=== PATIENT | female | born 1960 | race Caucasian/White ===

== ENCOUNTER 2021-12-21 08:27 | Observation (INO) | payer BC ==
[2021-12-21] MEDS ORDERED: ACETAMINOPHEN 500 MG TABLET (FP) PO ONE (09:15)
[2021-12-21] MEDS ORDERED: ACETAMINOPHEN 325 MG TABLET (FP) ONE (09:24)
[2021-12-21] MEDS ORDERED: morphine CARPU-JECT 2 MG/1 ML DISP.SYRIN IM ONE (09:39)
[2021-12-21] MEDS ORDERED: morphine SULFATE 4 MG/ML VIAL ONE (09:49)
[2021-12-21] MEDS ORDERED: KETAMINE HCL 200 MG/20 ML VIAL IVPUSH ONE ×3 (10:21→12:44)
[2021-12-21] MEDS ORDERED: PROPOFOL 200 MG/20 ML VIAL IVPUSH ONE (10:21)
[2021-12-21] MEDS ORDERED: KETAMINE HCL 200 MG/20 ML VIAL ONE (10:25)
[2021-12-21] MEDS ORDERED: PROPOFOL 1,000,000 MCG/100 ML VIAL ONE (10:26)
[2021-12-21] MEDS ORDERED: SODIUM CHLORIDE 0.9% 500 ML INFUS.BAG IV ONE (14:08)
[2021-12-21 15:32] LABS: BASO % 0.4 % (0-2.0); EOS % 0.3 % (0-4.5); HEMATOCRIT 41.3 % (32.4-45.2); LYMPH % 27.7 % (8-40); MCH 35.8 pg (25.7-33.7); MEAN CELL VOLUME 105.3 fl (80-96); MEAN PLT VOLUME 7.5 fl (7.5-11.1); MONO % 10.2 % (3.8-10.2); NEUT % 61.4 % (42.8-82.8); PLATELET COUNT 126 10^3/uL (134-434); RBC 3.92 M/mm3 (3.60-5.2); RDW 15.2 % (11.6-15.6)
[2021-12-21 16:00] LABS: ALBUMIN 3.4 g/dl (3.4-5.0); BLOOD UREA NITROGEN 11.2 mg/dL (7-18); CALCIUM 8.9 mg/dL (8.5-10.1)
[2021-12-21 16:04] LABS: BILIRUBIN,TOTAL 1.1 mg/dL (0.2-1); TOT PROT 7.9 g/dl (6.4-8.2)
[2021-12-21 16:35] LABS: MACROCYTOSIS 2+; PLATELET ESTIMATE DECREASED
[2021-12-21] MEDS: INSULIN SLIDING SCALE (NOVOLOG) 1 VIAL SQ SCH ×2 (16:40→22:50)
[2021-12-21] MEDS ORDERED: ACETAMINOPHEN 325 MG TABLET (FP) PO PRN (18:55)
[2021-12-21] MEDS ORDERED: ALPRAZolam 1 MG TABLET PO PRN (19:35)
[2021-12-22 02:31] VITALS: BMI 40.4
[2021-12-22] MEDS: INSULIN SLIDING SCALE (NOVOLOG) 1 VIAL SQ SCH ×4 (06:58→21:08)
[2021-12-22] MEDS ORDERED: LEVOTHYROXINE 75 MCG, LEVOTHYROXINE 100 MCG PO SCH (07:00)
[2021-12-22] MEDS: ENOXAPARIN NA (PORCINE) 40 MG/0.4 ML DISP.SYRIN SQ SCH (09:47)
[2021-12-22] MEDS: metoPROLOL SUCCINATE 25 MG TAB.SR.24H (FP) PO SCH (09:47)
[2021-12-22 10:14] LABS: CALCIUM 8.6 mg/dL (8.5-10.1)
[2021-12-22 10:15] LABS: BLOOD UREA NITROGEN 13.3 mg/dL (7-18)
[2021-12-22 10:18] LABS: CREATININE 0.8 mg/dL (0.55-1.3)
[2021-12-22 10:19] LABS: TOT PROT 7.1 g/dl (6.4-8.2)
[2021-12-22 10:20] LABS: BILIRUBIN,TOTAL 1.4 mg/dL (0.2-1)
[2021-12-22] MEDS: oxyCODONE HCL 5 MG TABLET PO PRN ×2 (13:01→21:04)
[2021-12-22] MEDS ORDERED: ALBUTEROL SO4 0.083% IH SOL 2.5 MG/3 ML VIAL.NEB. NEB PRN (14:17)
[2021-12-22] MEDS ORDERED: PATIENT'S OWN MEDICATION (NON-FORMULARY) (Levothyroxine Sodium [Levothyroxine] 175 MCG Cap PO SCH (14:30)
[2021-12-22] MEDS ORDERED: ALBUTEROL SO4 HFA INHALER IH PRN (14:42)
[2021-12-22] MEDS ORDERED: LEVOTHYROXINE NA 75 MCG TABLET (FP) ONE (16:49)
[2021-12-22] MEDS ORDERED: LEVOTHYROXINE NA 100 MCG TABLET (FP) ONE (16:49)
[2021-12-22] MEDS: LEVOTHYROXINE 75 MCG, LEVOTHYROXINE 100 MCG PO SCH (16:56)
[2021-12-22] MEDS: ALPRAZolam 1 MG TABLET PO PRN ×2 (16:58→22:48)
[2021-12-23] MEDS: oxyCODONE HCL 5 MG TABLET PO PRN (02:59)
[2021-12-23] MEDS ORDERED: LEVOTHYROXINE NA 100 MCG TABLET (FP) ONE (06:03)
[2021-12-23] MEDS ORDERED: LEVOTHYROXINE NA 75 MCG TABLET (FP) ONE (06:03)
[2021-12-23] MEDS: LEVOTHYROXINE 75 MCG, LEVOTHYROXINE 100 MCG PO SCH (06:06)
[2021-12-23] MEDS: ALPRAZolam 1 MG TABLET PO PRN ×2 (06:06→15:08)
[2021-12-23] MEDS: INSULIN SLIDING SCALE (NOVOLOG) 1 VIAL SQ SCH ×2 (06:07→13:09)
[2021-12-23] MEDS ORDERED: INSULIN (NOVOLOG) ASPART 100 UNITS/ML 10ML VIAL ONE ×2 (06:39→16:59)
[2021-12-23 07:47] LABS: HEMATOCRIT 37.8 % (32.4-45.2); HEMOGLOBIN 12.7 GM/dL (10.7-15.3); MCH 35.3 pg (25.7-33.7); MCHC 33.6 g/dl (32.0-36.0); MEAN CELL VOLUME 105.1 fl (80-96); MEAN PLT VOLUME 7.6 fl (7.5-11.1); PLATELET COUNT 129 10^3/uL (134-434); RBC 3.59 M/mm3 (3.60-5.2); RDW 15.1 % (11.6-15.6); WHITE BLOOD COUNT 7.2 K/mm3 (4.0-10.0)
[2021-12-23 08:06] LABS: CALCIUM 8.8 mg/dL (8.5-10.1)
[2021-12-23 08:07] LABS: BLOOD UREA NITROGEN 13.2 mg/dL (7-18); MAGNESIUM 2.1 mg/dL (1.8-2.4)
[2021-12-23 08:10] LABS: CREATININE 0.7 mg/dL (0.55-1.3)
[2021-12-23] MEDS ORDERED: POTASSIUM CHLORIDE TABS 10 MEQ TABLET.ER (FP) PO ONE (09:15)
[2021-12-23] MEDS ORDERED: NICOTINE 14 MG/24 HOURS TOPICAL PATCH TD SCH (10:00)
[2021-12-23] MEDS: metoPROLOL SUCCINATE 25 MG TAB.SR.24H (FP) PO SCH (10:41)
[2021-12-23] MEDS: ENOXAPARIN NA (PORCINE) 40 MG/0.4 ML DISP.SYRIN SQ SCH (10:41)
[2021-12-23 16:37] VITALS: BP 130/60; PULSE 72; TEMP 98.8
== END 2021-12-23 18:21 | disposition home or self-care (01) ==
LOC: JER 08:27 → JERBED 15:28 → J8W 21:41
PROVIDERS: ADMIT Internal Medicine
PROC: 0QSHXZZ Reposition Left Tibia, External Approach (ICD-10-PCS; principal; 2021-12-21)
PROC: 3E023GC Introduction of Other Therapeutic Substance into Muscle, Percutaneous Approach (ICD-10-PCS; 2021-12-21)
PROC: 3E013VG Introduction of Insulin into Subcutaneous Tissue, Percutaneous Approach (ICD-10-PCS; 2021-12-21)
PROC: 3E033GC Introduction of Other Therapeutic Substance into Peripheral Vein, Percutaneous Approach (ICD-10-PCS; 2021-12-21)
PROC: 3E023NZ Introduction of Analgesics, Hypnotics, Sedatives into Muscle, Percutaneous Approach (ICD-10-PCS; 2021-12-21)
PROC: 3E033NZ Introduction of Analgesics, Hypnotics, Sedatives into Peripheral Vein, Percutaneous Approach (ICD-10-PCS; 2021-12-21)
PROC: 3E0337Z Introduction of Electrolytic and Water Balance Substance into Peripheral Vein, Percutaneous Approach (ICD-10-PCS; 2021-12-21)
DX: S82.852A Displaced trimalleolar fracture of left lower leg, initial encounter for closed fracture (principal); W22.01XA Walked into wall, initial encounter; Y93.89 Activity, other specified; Y92.000 Kitchen of unspecified non-institutional (private) residence as the place of occurrence of the external cause; E11.9 Type 2 diabetes mellitus without complications; I10 Essential (primary) hypertension; E78.5 Hyperlipidemia, unspecified; F17.210 Nicotine dependence, cigarettes, uncomplicated
CPT/HCPCS: 36415; 73562-TC-LT-FY; 73590-TC-LT-FY; 73610-TC-LT-FY; 73630-TC-LT; 80048; 80053; 82607; 82962; 83036; 83735; 85025; 85027; 86850; 86900; 86901; 93005; 93010; 97010-GP; 97116-GP; 97161-GP; 99285-25; C9803; G0378; U0003; U0005

== ENCOUNTER 2021-12-31 07:34 | Inpatient (IN) | payer BC ==
[2021-12-31 09:40] LABS: BASO % 1.2 % (0-2.0); LYMPH % 32.8 % (8-40); MCH 36.2 pg (25.7-33.7); MCHC 34.3 g/dl (32.0-36.0); MEAN CELL VOLUME 105.5 fl (80-96); MEAN PLT VOLUME 7.3 fl (7.5-11.1); MONO % 12.3 % (3.8-10.2); NEUT % 52.7 % (42.8-82.8); PLATELET COUNT 168 10^3/uL (134-434); RBC 3.32 M/mm3 (3.60-5.2); RDW 14.9 % (11.6-15.6)
[2021-12-31 09:55] LABS: ACTIVATED PTT 37.3 SECONDS (25.2-36.5); INR 1.28 (0.83-1.09); PROTHROMBIN TIME (PATIENT) 14.8 SEC (9.7-13.0)
[2021-12-31 10:07] LABS: CHLORIDE 105 mmol/L (98-107); SODIUM 138 mmol/L (136-145)
[2021-12-31 10:09] LABS: ANION GAP 7 MMOL/L (8-16); CALCIUM 8.9 mg/dL (8.5-10.1); CO2 25 mmol/L (21-32)
[2021-12-31 10:10] LABS: ALBUMIN 2.8 g/dl (3.4-5.0); GLUCOSE,RANDOM 123 mg/dL (74-106)
[2021-12-31 10:12] LABS: CREATININE 0.9 mg/dL (0.55-1.3)
[2021-12-31 10:13] LABS: SGOT/AST 61 U/L (15-37); SGPT/ALT 29 U/L (13-61)
[2021-12-31 10:15] LABS: ALK PHOS 162 U/L (45-117)
[2021-12-31] MEDS ORDERED: ZOLPIDEM TARTRATE 5 MG TABLET PO PRN (11:01)
[2021-12-31] MEDS ORDERED: ALPRAZolam 1 MG TABLET PO PRN (11:03)
[2021-12-31 12:20] LABS: URINE APPEARANCE CLEAR; URINE BILIRUBIN NEGATIVE (NEGATIVE); URINE COLOR YELLOW; URINE GLUCOSE (UA) NEGATIVE (NEGATIVE); URINE KETONE NEGATIVE (NEGATIVE); URINE LEUK ESTERASE NEGATIVE (NEGATIVE); URINE NITRITE NEGATIVE (NEGATIVE); URINE PROTEIN NEGATIVE (NEGATIVE)
[2021-12-31 12:48] LABS: ANISOCYTOSIS 1+; MACROCYTOSIS 1+; PLATELET ESTIMATE NORMAL
[2021-12-31] MEDS ORDERED: DOCUSATE SODIUM 100 MG CAPSULE (FP) PO ONE ×2 (14:20→14:21)
[2021-12-31] MEDS: INSULIN SLIDING SCALE (NOVOLOG) 1 VIAL SQ SCH (19:10)
[2021-12-31] MEDS ORDERED: SODIUM CHLORIDE 500 ML IV STA (20:10)
[2021-12-31] MEDS ORDERED: MONTELUKAST NA 10 MG TABLET PO SCH (22:00)
[2021-12-31] MEDS ORDERED: ROSUVASTATIN CA 20 MG TABLET PO SCH (22:00)
[2021-12-31] MEDS ORDERED: traZODone HCL 50 MG TABLET (FP) PO SCH (22:00)
[2021-12-31] MEDS: ACETAMINOPHEN 325 MG TABLET (FP) PO PRN (23:45)
[2022-01-01 02:36] VITALS: BMI 43.0
[2022-01-01] MEDS ORDERED: LEVOTHYROXINE NA 100 MCG TABLET (FP) ONE (05:45)
[2022-01-01] MEDS ORDERED: LEVOTHYROXINE NA 75 MCG TABLET (FP) ONE (05:45)
[2022-01-01] MEDS: INSULIN SLIDING SCALE (NOVOLOG) 1 VIAL SQ SCH ×3 (06:22→17:07)
[2022-01-01] MEDS ORDERED: LEVOTHYROXINE 100 MCG, LEVOTHYROXINE 75 MCG PO SCH (07:00)
[2022-01-01] MEDS ORDERED: LEVOTHYROXINE NA 150 MCG TABLET PO SCH (07:00)
[2022-01-01] MEDS: ACETAMINOPHEN 325 MG TABLET (FP) PO PRN ×2 (08:32→20:36)
[2022-01-01] MEDS ORDERED: ASPIRIN 81 MG CHEWABLE TABLETS PO SCH (10:00)
[2022-01-01] MEDS ORDERED: valACYclovir HCL 500 MG TABLET (FP) PO SCH (10:00)
[2022-01-01] MEDS ORDERED: FLUoxetine HCL 20 MG CAPSULE PO SCH (10:00)
[2022-01-01] MEDS ORDERED: PANTOPRAZOLE 40 MG TABLET PO SCH (10:00)
[2022-01-01] MEDS ORDERED: metoPROLOL SUCCINATE 25 MG TAB.SR.24H (FP) PO SCH (10:00)
[2022-01-01 10:13] LABS: BASO % 1.4 % (0-2.0); HEMATOCRIT 34.6 % (32.4-45.2); HEMOGLOBIN 11.9 GM/dL (10.7-15.3); LYMPH % 38.4 % (8-40); MCH 36.4 pg (25.7-33.7); MCHC 34.5 g/dl (32.0-36.0); MEAN CELL VOLUME 105.5 fl (80-96); MEAN PLT VOLUME 6.9 fl (7.5-11.1); MONO % 12.7 % (3.8-10.2); NEUT % 46.5 % (42.8-82.8); PLATELET COUNT 175 10^3/uL (134-434); RBC 3.28 M/mm3 (3.60-5.2); RDW 14.7 % (11.6-15.6); WHITE BLOOD COUNT 5.3 K/mm3 (4.0-10.0)
[2022-01-01 10:41] LABS: CALCIUM 9.1 mg/dL (8.5-10.1)
[2022-01-01 10:42] LABS: BLOOD UREA NITROGEN 9.5 mg/dL (7-18)
[2022-01-01 10:45] LABS: CREATININE 0.7 mg/dL (0.55-1.3)
[2022-01-01 10:47] LABS: BILIRUBIN,TOTAL 1.2 mg/dL (0.2-1); TOT PROT 7.1 g/dl (6.4-8.2)
[2022-01-01] MEDS ORDERED: LACTATED RINGERS SOLUTION 1,000 ML IV SCH (11:15)
[2022-01-01] MEDS ORDERED: PROMETHAZINE HCL 25 MG/1 ML VIAL IVPUSH PRN ×2 (11:15→14:38)
[2022-01-01] MEDS ORDERED: ONDANSETRON 4 MG/2 ML VIAL IVPUSH PRN ×2 (11:15→14:38)
[2022-01-01] MEDS ORDERED: MIDAZOLAM HCL 2 MG/2 ML SINGLE DOSE VIAL ONE ×2 (11:22)
[2022-01-01] MEDS ORDERED: ROPIVACAINE HCL 0.5% 30ML VIAL ONE (11:23)
[2022-01-01] MEDS ORDERED: PROPOFOL 20 ML ONE ×4 (12:21→13:22)
[2022-01-01] MEDS ORDERED: ceFAZolin SODIUM 1 GM VIAL IVPB ONE (12:25)
[2022-01-01] MEDS ORDERED: SUCCINYLCHOLINE CHLORIDE 200 MG/10 ML SYRINGE ONE (12:49)
[2022-01-01] MEDS: LACTATED RINGERS SOLUTION 1,000 ML IV SCH (15:45)
[2022-01-01] MEDS: CEFAZOLIN 2 GM in SODIUM CHLORIDE 100 ML IVPB SCH (19:42)
[2022-01-01] MEDS ORDERED: CEFAZOLIN 2 GM in SODIUM CHLORIDE 100 ML IVPB SCH (20:00)
[2022-01-01] MEDS: traZODone HCL 50 MG TABLET (FP) PO SCH (21:48)
[2022-01-01] MEDS: MONTELUKAST NA 10 MG TABLET PO SCH (21:49)
[2022-01-01] MEDS: ZOLPIDEM TARTRATE 5 MG TABLET PO PRN (21:50)
[2022-01-01] MEDS: ALPRAZolam 1 MG TABLET PO PRN (21:50)
[2022-01-01] MEDS: ROSUVASTATIN CA 20 MG TABLET PO SCH (21:50)
[2022-01-02] MEDS: CEFAZOLIN 2 GM in SODIUM CHLORIDE 100 ML IVPB SCH (01:59)
[2022-01-02] MEDS: ACETAMINOPHEN 325 MG TABLET (FP) PO PRN ×3 (02:02→21:05)
[2022-01-02] MEDS ORDERED: LEVOTHYROXINE NA 100 MCG TABLET (FP) ONE (05:13)
[2022-01-02] MEDS ORDERED: LEVOTHYROXINE NA 75 MCG TABLET (FP) ONE (05:13)
[2022-01-02] MEDS: INSULIN SLIDING SCALE (NOVOLOG) 1 VIAL SQ SCH ×3 (06:04→17:33)
[2022-01-02] MEDS: LEVOTHYROXINE 100 MCG, LEVOTHYROXINE 75 MCG PO SCH (06:04)
[2022-01-02] MEDS: PANTOPRAZOLE 40 MG TABLET PO SCH (09:09)
[2022-01-02] MEDS: valACYclovir HCL 500 MG TABLET (FP) PO SCH (09:09)
[2022-01-02] MEDS: metoPROLOL SUCCINATE 25 MG TAB.SR.24H (FP) PO SCH (09:10)
[2022-01-02] MEDS: FLUoxetine HCL 20 MG CAPSULE PO SCH (09:10)
[2022-01-02] MEDS ORDERED: ASPIRIN 325 MG TABLET PO SCH ×2 (10:00)
[2022-01-02 10:36] LABS: HEMATOCRIT 29.8 % (32.4-45.2); MCH 35.8 pg (25.7-33.7); MCHC 33.5 g/dl (32.0-36.0); MEAN CELL VOLUME 106.7 fl (80-96); MEAN PLT VOLUME 7.4 fl (7.5-11.1); PLATELET COUNT 158 10^3/uL (134-434); RBC 2.79 M/mm3 (3.60-5.2); RDW 14.8 % (11.6-15.6); WHITE BLOOD COUNT 7.4 K/mm3 (4.0-10.0)
[2022-01-02 10:46] LABS: CALCIUM 8.2 mg/dL (8.5-10.1)
[2022-01-02 10:50] LABS: CREATININE 0.5 mg/dL (0.55-1.3)
[2022-01-02] MEDS: ALPRAZolam 1 MG TABLET PO PRN (11:00)
[2022-01-02] MEDS: LACTATED RINGERS SOLUTION 1,000 ML IV SCH ×2 (13:31→22:58)
[2022-01-02] MEDS: oxyCODONE HCL 5 MG TABLET PO PRN (15:52)
[2022-01-02] MEDS: traZODone HCL 50 MG TABLET (FP) PO SCH (22:56)
[2022-01-02] MEDS: ROSUVASTATIN CA 20 MG TABLET PO SCH (22:56)
[2022-01-02] MEDS: MONTELUKAST NA 10 MG TABLET PO SCH (22:58)
[2022-01-02] MEDS: ZOLPIDEM TARTRATE 5 MG TABLET PO PRN (23:20)
[2022-01-03] MEDS: oxyCODONE HCL 5 MG TABLET PO PRN ×2 (00:25→06:07)
[2022-01-03] MEDS ORDERED: LEVOTHYROXINE NA 75 MCG TABLET (FP) ONE (06:05)
[2022-01-03] MEDS ORDERED: LEVOTHYROXINE NA 100 MCG TABLET (FP) ONE (06:05)
[2022-01-03] MEDS: LEVOTHYROXINE 100 MCG, LEVOTHYROXINE 75 MCG PO SCH (06:07)
[2022-01-03] MEDS: INSULIN SLIDING SCALE (NOVOLOG) 1 VIAL SQ SCH ×2 (06:14→14:21)
[2022-01-03] MEDS: ACETAMINOPHEN 325 MG TABLET (FP) PO PRN (08:17)
[2022-01-03 09:51] LABS: HEMATOCRIT 31.7 % (32.4-45.2); MCH 36.3 pg (25.7-33.7); MCHC 34.6 g/dl (32.0-36.0); MEAN PLT VOLUME 6.9 fl (7.5-11.1); PLATELET COUNT 167 10^3/uL (134-434); RBC 3.02 M/mm3 (3.60-5.2); RDW 15.1 % (11.6-15.6); WHITE BLOOD COUNT 7.1 K/mm3 (4.0-10.0)
[2022-01-03 12:08] VITALS: BP 115/64; PULSE 78; TEMP 98
[2022-01-03] MEDS: valACYclovir HCL 500 MG TABLET (FP) PO SCH (12:09)
[2022-01-03] MEDS: metoPROLOL SUCCINATE 25 MG TAB.SR.24H (FP) PO SCH (12:09)
[2022-01-03] MEDS: FLUoxetine HCL 20 MG CAPSULE PO SCH (12:09)
[2022-01-03] MEDS: PANTOPRAZOLE 40 MG TABLET PO SCH (12:09)
== END 2022-01-03 14:51 | disposition home or self-care (01) | DRG 493 ==
LOC: JER 07:34 → JERBED 08:54 → J5S 22:00 → OBSVTOIN 01-01 13:48
PROC: 0QSH04Z Reposition Left Tibia with Internal Fixation Device, Open Approach (ICD-10-PCS; 2022-01-01)
PROC: 0QSK04Z Reposition Left Fibula with Internal Fixation Device, Open Approach (ICD-10-PCS; principal; 2022-01-01 11:30)
DX: S82.842A Displaced bimalleolar fracture of left lower leg, initial encounter for closed fracture (principal); Z68.41 Body mass index [BMI] 40.0-44.9, adult; I10 Essential (primary) hypertension; E78.5 Hyperlipidemia, unspecified; E11.9 Type 2 diabetes mellitus without complications; Z86.16 Personal history of COVID-19; Z79.84 Long term (current) use of oral hypoglycemic drugs; W19.XXXA Unspecified fall, initial encounter; Y93.89 Activity, other specified; Y92.009 Unspecified place in unspecified non-institutional (private) residence as the place of occurrence of the external cause; Y99.8 Other external cause status; F32.A Depression, unspecified; E03.9 Hypothyroidism, unspecified; F17.210 Nicotine dependence, cigarettes, uncomplicated
CPT/HCPCS: 36415; 71045-TC-FY; 73610-TC-LT-FY; 76000-TC-FY; 80048; 80053; 81003; 82550; 82553; 82962; 84484; 85025; 85027; 85610; 85730; 86850; 86900; 86901; 87086; 93005; 93010; 94010; 94760; 97116-GP; 97161-GP; 99285-25; C9803; G0378; U0003; U0005

== ENCOUNTER 2022-05-03 07:32 | Day surgery (SDC) | payer BC ==
[2022-05-01 11:15] VITALS: BMI 43.0
[2022-05-03] MEDS ORDERED: MIDAZOLAM HCL 2 MG/2 ML SINGLE DOSE VIAL ONE (10:11)
[2022-05-03] MEDS ORDERED: FENTANYL CITRATE/PF 50 MCG/ML VIAL ONE ×3 (10:11→12:52)
[2022-05-03] MEDS ORDERED: BUPIVACAINE HCL/PF 0.5% (5 MG/ML) 30 ML VIAL IJ ONE ×2 (10:11→13:04)
[2022-05-03] MEDS ORDERED: PROPOFOL 20 ML ONE (10:45)
[2022-05-03] MEDS ORDERED: ceFAZolin SODIUM 1 GM VIAL ONE ×2 (10:56)
[2022-05-03] MEDS ORDERED: ONDANSETRON 4 MG/2 ML VIAL ONE (11:28)
[2022-05-03] MEDS ORDERED: DEXAMETHASONE SOD PHOSPHATE 4 MG/1 ML VIAL ONE (11:28)
[2022-05-03] MEDS ORDERED: ONDANSETRON 4 MG/2 ML VIAL IVPUSH PRN (12:29)
[2022-05-03] MEDS ORDERED: oxyCODONE HCL 5 MG TABLET PO PRN (12:29)
[2022-05-03] MEDS ORDERED: ACETAMINOPHEN 500 MG TABLET (FP) PO ONE (12:30)
[2022-05-03] MEDS ORDERED: LACTATED RINGERS SOLUTION 1,000 ML IV SCH (12:30)
[2022-05-03] MEDS ORDERED: ACETAMINOPHEN 500 MG TABLET (FP) ONE (13:26)
[2022-05-03 14:44] VITALS: PULSE 81; TEMP 97.9
[2022-05-03 14:50] VITALS: BP 109/47
== END 2022-05-03 14:35 | disposition home or self-care (01) ==
LOC: FASU 07:32
PROVIDERS: ATTEND Orthopaedic Surgery
PROC: 0QSJ04Z Reposition Right Fibula with Internal Fixation Device, Open Approach (ICD-10-PCS; principal; 2022-05-03 11:17)
DX: S82.61XA Displaced fracture of lateral malleolus of right fibula, initial encounter for closed fracture (principal); X58.XXXA Exposure to other specified factors, initial encounter; Y93.9 Activity, unspecified; Y92.9 Unspecified place or not applicable
CPT/HCPCS: 73610-TC-RT-FY; 82962; 94760